=== PATIENT | male | born 1985 | race Two or more races ===

== ENCOUNTER 2018-06-27 15:25 | Emergency (ER) | payer SELFPAY ==
[~2018-06-27] VITALS: Ht 175.3 cm; Wt 68.0 kg
[2018-06-27] MEDS ORDERED: IBUPROFEN 800MG TABLET PO ONE (17:45)
[2018-06-27 21:04] VITALS: BP 139/99
== END 2018-06-27 21:08 | disposition home or self-care (01) ==
LOC: ER 15:25
DX: J32.9 Chronic sinusitis, unspecified (principal)
CPT/HCPCS: 70486; 99284